=== PATIENT | female | born 1980 | race Caucasian/White ===

== ENCOUNTER 2024-01-12 19:19 | Emergency (ER) | payer SELFPAY ==
[2024-01-12 20:03] LABS: #Basophils 0.21 10x3/uL (0.0-0.2); #Eosinphils 0.24 10x3/uL (0.0-0.5); #Monocytes 0.51 10x3/uL (0.0-1.1); #Neutrophils 9.64 10x3/uL (1.5-8.4); %Basophils 1.7 % (0.0-2.0); %Eosinophils 1.9 % (0.0-6.0); %Lymphocytes 14.8 % (18.0-47.0); %Monocytes 4.1 % (0.0-10.0); %Neutrophils 77.1 % (40.0-75.0); Hematocrit 30.5 % (34.9-44.5); Hemoglobin 10.7 g/dL (12.0-15.5); Mean Corpuscular HGB CONC 35.1 g/dL (32.0-36.0); Mean Corpuscular Hemoglobin 33.3 pg (27.0-33.0); Mean Platelet Volume 10.5 fL (7.4-10.4); Platelet Count 409 10x3/uL (150-450); RBC Distribution Width 13.2 % (11.5-14.5); Red Blood Cell (RBC) Count 3.21 10x6/uL (3.90-5.03); White Blood Cell (WBC) Count 12.5 10x3/uL (3.5-10.5)
[2024-01-12 20:13] LABS: INR-International Normal Ratio 0.9; PTT 23.7 sec (22.0-33.0); Prothrombin Time 10.3 sec (9.5-12.1)
[2024-01-12 20:17] LABS: ALT (SGPT) 12 U/L (8-55); AST (SGOT) 13 U/L (5-34); Albumin 3.3 g/dL (3.5-5.0); Alkaline Phosphatase 84 U/L (40-110); Anion Gap 12 mmol/L (10-20); BUN (Urea Nitrogen) 18 mg/dL (7.0-18.7); Bilirubin, Total 0.2 mg/dL (0.2-1.2); Calc. Creatinine Clearance 0 mL/min (70-130); Calcium 8.5 mg/dL (7.8-10.44); Carbon Dioxide 23 mmol/L (22-29); Chloride 102 mmol/L (98-107); Estimated GFR 111; Globulin 2.4 g/dL (2.4-3.5); Glucose 116 mg/dL (70-105); Potassium 4.3 mmol/L (3.5-5.1); Protein, Total 5.7 g/dL (6.0-8.3); Sodium 133 mmol/L (136-145)
[2024-01-12] MEDS ORDERED: Acetaminophen 500 MG TAB ONE (20:27)
[2024-01-12 21:28] LABS: Bilirubin Neg (Negative); Blood, Urine 250 (Negative); Clarity Slightly Cloudy (Clear); Glucose, Urine (Dipstick) Normal (Negative); Ketone, Urine Negative (Negative); Leukocyte 25 (Negative); Nitrite Negative (Negative); Protein, Urine (Dipstick) 30 mg/dl (Neg-Trace); Specific Gravity, Urine 1.015 (1.005-1.030); Urobilinogen Normal mg/dL (Less than 2)
[2024-01-12] MEDS ORDERED: Metoclopramide HCl 10 MG (2 mL) VIAL ONE (21:50)
[2024-01-12 21:53] LABS: Bacteria/HPF Rare-Few HPF (None Seen); CAUTI Indications for Culture Pregnancy; RBC/HPF Greater than 50 HPF (0-3); Squamous Epithelial 0-3 HPF (0-3); WBC/HPF 0-3 HPF (0-3)
[2024-01-12 21:54] LABS: Mucous/LPF Rare LPF (<2+)
[2024-01-12 21:55] LABS: Urine Culture Reflex Yes Yes
[2024-01-12] MEDS ORDERED: Carboprost 250 MCG/ML AMP ONE (23:44)
[2024-01-12] MEDS ORDERED: Diphenoxylate HCl/Atropine Tablet ONE (23:47)
[2024-01-13] MEDS ORDERED: Carboprost 250 MCG/ML AMP IM SCH (00:45)
[2024-01-13] MEDS ORDERED: Promethazine HCl 25 MG in Sodium Chloride 0.9% 50 ML IVPB SCH (00:45)
[2024-01-13] MEDS ORDERED: Diphenoxylate HCl/Atropine Tablet PO SCH (00:45)
[2024-01-13] MEDS ORDERED: Diphenoxylate HCl/Atropine Tablet ONE (01:17)
== END 2024-01-13 01:26 | disposition home or self-care (01) ==
LOC: CSHERS 19:19
DX: O72.1 Other immediate postpartum hemorrhage (principal)
CPT/HCPCS: 76856; 80053; 81001; 85025; 85610; 85730; 86850; 86900; 86901; 87086; 93005; 96374; 96375; J2550; J2765; J3490